=== PATIENT | female | born 1955 ===

== ENCOUNTER 2021-03-18 08:07 | Emergency (ER) | payer OTHER ==
[~2021-03-18] VITALS: Ht 157.5 cm; Wt 68.0 kg
[2021-03-18] MEDS ORDERED: KETOROLAC TROMETH 60MG/2ML VIAL IM ONE (08:45)
[2021-03-18] MEDS ORDERED: METHOCARBAMOL 500 MG TAB PO ONE (08:45)
[2021-03-18 08:55] VITALS: BP 129/78
[2021-03-18] MEDS ORDERED: HYDROcodone-ACET 5/325MG TAB PO ONE (09:00)
== END 2021-03-18 10:36 | disposition home or self-care (01) ==
LOC: ER 08:07 → EDBD 08:07 → ER 10:36
DX: S16.1XXA Strain of muscle, fascia and tendon at neck level, initial encounter (principal); M48.02 Spinal stenosis, cervical region; E78.5 Hyperlipidemia, unspecified; F17.210 Nicotine dependence, cigarettes, uncomplicated; X58.XXXA Exposure to other specified factors, initial encounter; Y93.89 Activity, other specified; Y92.89 Other specified places as the place of occurrence of the external cause; Y99.8 Other external cause status
CPT/HCPCS: 72125; 93005; 96372; 99284; J1885